=== PATIENT | male | born 1955 | race Caucasian/White ===

== ENCOUNTER → 2018-12-11 | Outpatient (CLI) | payer BC ==
[2018-12-11 07:52] LABS: POTASSIUM 4.2 mmol/L (3.5-5.1)
== END ==
LOC: M.LAB 04:49
PROVIDERS: Student in an Organized Health Care Education/Training Program
DX: E87.6 Hypokalemia (principal); E11.9 Type 2 diabetes mellitus without complications

== ENCOUNTER → 2019-02-06 | Outpatient (CLI) | payer BC ==
[2019-02-06 11:13] LABS: POTASSIUM 4.2 mmol/L (3.5-5.1)
== END ==
LOC: M.LAB 05:13
PROVIDERS: Student in an Organized Health Care Education/Training Program
DX: E11.9 Type 2 diabetes mellitus without complications (principal); E87.6 Hypokalemia

== ENCOUNTER → 2020-01-28 | Outpatient (CLI) | payer OTHER | LOC: M.MRI 11:01 | DX: S83.242A Other tear of medial meniscus, current injury, left knee, initial encounter (principal); M17.12 Unilateral primary osteoarthritis, left knee; M25.462 Effusion, left knee; X58.XXXA Exposure to other specified factors, initial encounter; Y93.89 Activity, other specified; Y92.89 Other specified places as the place of occurrence of the external cause; Y99.8 Other external cause status ==

== ENCOUNTER 2020-02-17 05:43 | Inpatient (IN) | payer OTHER ==
[2020-02-10 10:19] LABS: URINE BILIRUBIN NEGATIVE (Negative); URINE BLOOD NEGATIVE (Negative); URINE CLARITY CLEAR; URINE COLOR YELLOW; URINE GLUCOSE-RANDOM NEGATIVE (Negative); URINE KETONES NEGATIVE (Negative); URINE LEUKOCYTES-REFLEX NEGATIVE (Negative); URINE NITRITE-REFLEX NEGATIVE (Negative); URINE PROTEIN NEGATIVE (Negative); URINE UROBILINOGEN 0.2 E.U./dl (0.2-1.0)
[2020-02-10 10:20] LABS: HEMOGLOBIN 14.2 gm/dL (14.0-18.0); MCH 31.7 pg (26.0-34.0); MCHC 34.8 g/dL (28.0-37.0); MCV 91.3 fL (80.0-100.0); MPV 9.7 fl. (7.2-11.1); RBC 4.49 mil/uL (4.50-6.00); RDW-CV 15.6 % (10.5-14.5); WBC 10.7 thou/uL (4.0-11.0)
[2020-02-10 10:31] LABS: PROTIME 10.2 Seconds (9.20-11.50)
[2020-02-10 10:38] LABS: ALBUMIN 4.2 g/dL (3.4-5.0); CALCIUM 8.7 mg/dL (8.5-10.1); CREATININE 1.3 mg/dL (0.6-1.3); POTASSIUM 4.3 mmol/L (3.5-5.1); TOTAL BILIRUBIN 1.1 mg/dL (<0.1-1.0); TOTAL PROTEIN 7.2 g/dL (6.4-8.2)
--- NOTE | 2020-02-10 15:30 | EKG ---
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 Mac Miller MD, [facility] /EPI
[~2020-02-17] VITALS: Ht 177.8 cm; Wt 131.5 kg
[~2020-02-17 05:43] MED LIST: CITALOPRAM HBR40 MG PO; FLOMAX0.4 MG PO; HYDROXYZINE HCL25 M2 PO; LIPITOR 20 MG T20 M1 PO; LORATIDINE 10 M10 M1 PO; METFORMIN HCL1000 MG PO; METHOCARBAMOL500 M2 PO; NEURONTIN100 MG PO; NORCO 5-325 TA1 EAC1 PO; PROTONIX40 M1 PO; TOPROL XL25 MG PO; TRADJENTA5 MG; ZESTORETIC 20-1 EAC1 PO
[2020-02-17 11:00] VITALS: BP 135/77
[2020-02-17 16:23] VITALS: BP 115/67
--- NOTE | 2020-02-17 16:25 | NUR ---
PT ARRIVED ALERT AND ORIENTED. PT RESTING IN BED. PT C/O PAIN, MEDS GIVEN ORDERED. PT ORIENTED TO ROOM. FALL RISK PRECAUTIONS IN PLACE. WILL CONTINUE TO MONITOR.
--- NOTE | 2020-02-17 17:27 | NUR ---
PT REMAINED ALERT AND ORIENTED. PT RESTING IN BED. MEDS GIVEN ORDERED. PT RESTING IN BED. FALL RISK PRECAUTIONS IN PLACE. HOURLY ROUNDING COMPLETED. WILL CONTINUE TO MONITOR.
[2020-02-17] MEDS ORDERED: PERCOCET 5-3251 EACH PO (17:35)
[2020-02-17] MEDS ORDERED: COLACE100 MG PO (17:36)
[2020-02-17] MEDS ORDERED: XARELTO10 M1 PO (17:36)
[2020-02-17 17:45] VITALS: BP 115/67
[2020-02-17 19:48] VITALS: BP 134/68
[2020-02-18] VITALS: BP 167/77
[2020-02-18 03:51] LABS: HEMATOCRIT 33.5 % (42.0-52.0); HEMOGLOBIN 11.4 gm/dL (14.0-18.0)
[2020-02-18 04:00] VITALS: BP 142/59
--- NOTE | 2020-02-18 06:30 | NUR ---
PATIENT USING CPM THIS MORNING. VOIDING WELL USING URINAL. HIS PAIN WELL MANAGED WITH OXYCODONE AND MORPHINE. ON 3L O2. POLAR PACK AND FOOT PUMPS. ALERT AND ORIENTED. RECEIVED ALL FLUIDS, ABX AND MEDS SCHEDULED. WILL CONTINUE TO MONITOR.
[2020-02-18 09:42] VITALS: BP 150/73
--- NOTE | 2020-02-18 15:30 | NUR ---
PT.ALERT AND ORIENTED. AT BEDSIDE. HE HAS A WALKER AND STOOL RISER AT HOME. HE IS NORMALLY INDEPENDENT AT HOME. WILL BE WITH HIM AT HOME 26/03. NO HX OF HH. HE THINKS HE WILL DO OUTPT.THERAPY AT DISCHARGE AT [facility]. CM WILL CALL IN BLOOD THINNER AND LET HIME KNOW COPAY IN AM. PROBABLE DISCHARGE IN AM.
[2020-02-18 16:00] VITALS: BP 162/68
--- NOTE | 2020-02-18 17:32 | NUR ---
RECIEVED O.T. ORDERS. WILL DEFER TO P.T. AT THIS TIME. PLEASE ORDER FURTHER O.T. SERVICES IF NEEDED.
--- NOTE | 2020-02-18 18:32 | NUR ---
ASSUMED CARE OF PATIENT AT APPROX 0730. ALERT AND ORIENTED X4. ASSESSMENT COMPLETED AND CHARTED. VSS ON ROOM AIR. COMPLAINT OF PAIN ADDRESSED WITH ORAL OXY IR. FLUIDS AND ANTIBIOTIC ADMINISTERED ORDERED THEN SALINE LOCKED. PATIENT UP WITH ASSIST USING GAIT BELT AND WALKER TO THE BATHROOM. THERAPIES COMPLETED AND PROGRESSING TOWARDS GOALS. NO OTHER COMPLAINTS THIS SHIFT. FALL PRECAUTIONS IN PLACE. CALL LIGHT WITHIN REACH. HOURLY ROUNDS COMPLETED. WILL CONTINUE WITH PLAN OF CARE.
[2020-02-18 19:51] VITALS: BP 154/74
[2020-02-19 05:25] LABS: HEMATOCRIT 32.5 % (42.0-52.0); HEMOGLOBIN 11.4 gm/dL (14.0-18.0)
[2020-02-19 08:10] VITALS: BP 146/77
[2020-02-19 15:03] VITALS: BP 115/67
[2020-02-19 16:00] VITALS: BP 117/64
--- NOTE | 2020-02-19 16:31 | NUR ---
PT.TO DISCHARGE HOME TODAY. CALLED IN PRESCRIPTION TO [facility]. [facility] REQUIRED A PRIOR AUTH. OBTAINED PRIOR AUTH OVER PHONE WITH [facility] [phone]. 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 CALLED PHARMACY BACK AND RECEIVED COPAY OF $60. INFORMED PT. HE SAID HE COULD PAY FOR IT. LET HIM KNOW [facility] AT 7PM. CM UNABLE TO FIND HH IN PT.SERVICE AREA AND THAT TOOK HIS INSURANCE. SPOKE WITH PT. HE WAS OK WITH DOING OUTPT.THERAPY. HE WOULD LIKE TO USE [facility]. SAID HIS CAN TAKE HIM TO THERAPY. NOTIFIED OFFICE. SHE WILL GET MESSAGE TO OFFICE NURSE AND THEY WILL CALL IN ORDER TO [facility].
--- NOTE | 2020-02-19 18:31 | NUR ---
ASSUMED CARE OF PATIENT AT APPROX 0730. ALERT AND ORIENTED X4. ASSESSMENT COMPLETED AND CHARTED. VSS ON ROOM AIR. PAIN MANAGED WITH ORAL OXY IR. PATIENT UP WITH GAIT BELT AND WALKER. WORKED WELL WITH THERAPIES AND PROGRESSED TOWARD GOALS. PATIENT DISCHARGED AT 1716 WITH ALL PERSONAL BELONGINGS, PRESCRIPTIONS AND DISCHARGE INFORMATION.
--- NOTE | 2020-02-25 12:26 | OP ---
[address] [address] OPERATIVE REPORT Name: JULIANA MOSELY Room: [address]R#: [id number] Admission: 02/17/20 Attend Phys: Staci Michel Discharge: 02/19/20 Date of : 59 Report #: [id number] THIS REPORT FOR: //name// cc: Jered Shaw Ahmad W. DO ~ THIS REPORT FOR: //name// CC: Jered Carpenter DATE OF SERVICE: 02/17/2020 PREOPERATIVE DIAGNOSIS: Left knee osteoarthritis. POSTOPERATIVE DIAGNOSIS: Left knee osteoarthritis. PROCEDURE: Left total knee arthroplasty. SURGEON: Johnathon Mackenzie II, DO ROAD MECHANIC: WEI Rodriguez ANESTHESIA: General endotracheal. ESTIMATED BLOOD LOSS: 50 mL. ANTIBIOTICS: Ancef preoperatively. DRAINS: Medium Hemovac. COMPLICATIONS: None. CONDITION OF THE PATIENT: Stable to recovery room. IMPLANTS: Listed in operative record and progress note. BRIEF HISTORY: The patient is seen in preoperative area. Preoperative H and P was performed. Site was marked, questions were answered. Risks and benefits were discussed with the patient in detail about surgery. The patient wished to proceed, assuming all risks. DESCRIPTION OF PROCEDURE: The patient was taken to the operative suite and placed supine on the operating table, given appropriate anesthesia. A well-padded tourniquet applied to upper thigh, which was inflated to 300 mmHg after gravity exsanguination. The operative knee was sterilely prepped and [facility] [address] [place] [address] OPERATIVE REPORT Name: JULIANA MOSLEY Jonathan Room: [address] IN [facility].#: [id number] Admission: 02/17/20 Attend Phys: Staci Michel Discharge: 02/19/20 Date of : 59 Report #: [id number] draped. Surgery began by midline incision. This was carried down to the subcutaneous tissues. A medial parapatellar arthrotomy was performed and carried down to bone. Patella was then everted and excess soft tissue was removed from around the femur. Femoral cutting block was then applied, checked with a drop angie for rotational alignment, pinned in appropriate position and appropriate cuts were made. A 4-in-1 cutting block was then applied, checked for rotational alignment, pinned in appropriate position and appropriate cuts were made. The tibia was exposed. Excess meniscus was removed. Retractor was placed on collateral ligaments. Tibial cutting block was then applied, pinned in appropriate position, checked with drop angie for rotational alignment and slope and appropriate cut was made. The tibial bone was removed. The tibial base plate was then applied, checked for rotational alignment with drop angie and pinned in appropriate position. The femur was then applied and box cut was reamed. This was then trialed with an appropriate spacer, which showed excellent fit and fill and excellent stability of knee through all range of motion. The patella was reamed in appropriate fashion and sized to appropriate size. Three peg holes were drilled and it was then trialed and showed excellent flexion, extension, excellent tracking of the patella within the groove. These trials were removed. The tibia was punched in appropriate fashion. Bone ends were cleansed with Pulsavac irrigation and cement was mixed and applied to final implants. These were then malleted into position and held the knee in extension and compressed to allow cement to cure. After it cured, excess was removed utilizing a [place] and osteotome. Wound was then copiously irrigated and the final spacer was then malleted into position. The tourniquet was deflated. Hemostasis was maintained with electrocautery. Pain cocktail was injected. PRP gel was sprayed throughout the internal aspects of the knee. Medium Hemovac drain was applied. Capsule was closed with #2 FiberWire and #1 Vicryl in [id number] fashion. Skin was closed with 2-0 Vicryl and running 3-0 Monocryl. Dermabond and sterile dressing applied. Luis wrap and PolarCare applied. The patient was transported to recovery room in stable condition. Counts were correct throughout the procedure. <ELECTRONICALLY SIGNED> By: Johnathon Mackenzie II, DO 02/25/20 1226 [id number] Mackenzie II, DO /nt
== END 2020-02-19 17:16 | disposition home or self-care (01) | DRG 470 ==
LOC: M.PRE 05:43 → M.ORTHSURG 10:08 → M.TBA 10:08 → M.PRE 11:17 → M.ORTHSURG 15:57
PROVIDERS: Orthopaedic Surgery; ADMIT Internal Medicine; ATTEND Internal Medicine
PROC: 0SRD069 Replacement of Left Knee Joint with Oxidized Zirconium on Polyethylene Synthetic Substitute, Cemented, Open Approach (ICD-10-PCS; principal; 2020-02-17)
DX: M17.12 Unilateral primary osteoarthritis, left knee (principal); E11.40 Type 2 diabetes mellitus with diabetic neuropathy, unspecified; F41.9 Anxiety disorder, unspecified; K21.9 Gastro-esophageal reflux disease without esophagitis; N40.0 Benign prostatic hyperplasia without lower urinary tract symptoms; E78.5 Hyperlipidemia, unspecified; E78.00 Pure hypercholesterolemia, unspecified; Z79.84 Long term (current) use of oral hypoglycemic drugs; Z79.01 Long term (current) use of anticoagulants; Z79.899 Other long term (current) drug therapy; Z82.49 Family history of ischemic heart disease and other diseases of the circulatory system; Z83.3 Family history of diabetes mellitus; Z80.9 Family history of malignant neoplasm, unspecified